=== PATIENT | female | born 1975 | race Caucasian/White ===

== ENCOUNTER 2021-06-25 17:39 | Emergency (ER) | payer SELFPAY ==
[~2021-06-25] VITALS: Ht 165.1 cm; Wt 77.0 kg
[2021-06-25 17:47] VITALS: BP 133/64
[2021-06-25] MEDS ORDERED: ACETAMINOPHEN 325MG TABLET PO ONE (18:15)
[2021-06-25] MEDS ORDERED: TETRACAINE 0.5% OPHTH DROPS 4ML LEFTEYE ONE (18:30)
[2021-06-25] MEDS ORDERED: FLUORESCEIN SODIUM 1MG/STRIP LEFTEYE ONE (18:30)
[2021-06-25] MEDS ORDERED: INDO-13 MT (20:38)
== END 2021-06-25 20:55 | disposition home or self-care (01) ==
LOC: ER 17:39
DX: H15.102 Unspecified episcleritis, left eye (principal); R51.9 Headache, unspecified; Z98.890 Other specified postprocedural states
CPT/HCPCS: 99284